=== PATIENT | male | born 1980 | race Caucasian/White ===

== ENCOUNTER → 2019-05-23 | Outpatient (CLI) | payer OTHER | LOC: COL.RAD 13:28 | DX: M50.122 Cervical disc disorder at C5-C6 level with radiculopathy (principal) ==

== ENCOUNTER → 2019-06-07 | Outpatient (CLI) | payer OTHER | LOC: MHCPAIN 15:00 | DX: G89.29 Other chronic pain (principal); M54.12 Radiculopathy, cervical region; M47.812 Spondylosis without myelopathy or radiculopathy, cervical region | CPT/HCPCS: G0463 ==

== ENCOUNTER → 2019-06-22 | Outpatient (CLI) | payer OTHER | LOC: MHCPAIN 13:50 | DX: M47.812 Spondylosis without myelopathy or radiculopathy, cervical region (principal); M54.12 Radiculopathy, cervical region | CPT/HCPCS: J1100; Q9967 ==

== ENCOUNTER → 2019-06-26 | Outpatient (CLI) | payer OTHER | LOC: MHCPAIN 15:02 | DX: G89.29 Other chronic pain (principal); M54.12 Radiculopathy, cervical region; M47.812 Spondylosis without myelopathy or radiculopathy, cervical region | CPT/HCPCS: G0463 ==

== ENCOUNTER → 2019-11-27 | Outpatient (CLI) | payer OTHER | LOC: COL.RAD 08:40 | DX: M50.122 Cervical disc disorder at C5-C6 level with radiculopathy (principal); Z98.1 Arthrodesis status ==

== ENCOUNTER → 2020-02-20 | Outpatient (CLI) | payer OTHER | LOC: COL.RAD 09:01 | DX: M50.122 Cervical disc disorder at C5-C6 level with radiculopathy (principal); Z98.1 Arthrodesis status ==

== ENCOUNTER → 2020-07-25 | Outpatient (CLI) | payer OTHER | LOC: COL.RAD 07:55 | DX: M50.122 Cervical disc disorder at C5-C6 level with radiculopathy (principal); M40.50 Lordosis, unspecified, site unspecified; Z98.1 Arthrodesis status ==

== ENCOUNTER 2020-11-17 14:26 | Emergency (ER) | payer OTHER ==
[~2020-11-17] VITALS: Ht 185.4 cm; Wt 159.1 kg
[2020-11-17 14:34] VITALS: BP 153/102; TEMP 98.3
[2020-11-17 14:58] VITALS: PULSE 81
== END 2020-11-17 15:08 | disposition home or self-care (01) ==
LOC: COL.ER 14:26
DX: K42.9 Umbilical hernia without obstruction or gangrene (principal)

== ENCOUNTER → 2020-11-19 | Outpatient (CLI) | payer OTHER | LOC: COL.RAD 08:32 → COL.LAB 08:32 → COL.RAD 08:35 | DX: M47.812 Spondylosis without myelopathy or radiculopathy, cervical region (principal); Z98.1 Arthrodesis status ==

== ENCOUNTER 2020-11-28 10:27 | Day surgery (SDC) | payer OTHER ==
[2020-11-28] VITALS (7 sets, daily range): BP systolic 123–143; BP diastolic 73–92; PULSE 65–78; TEMP 97.6–98
[~2020-11-28] VITALS: Ht 185.4 cm; Wt 165.0 kg
[2020-11-28] MEDS ORDERED: NAPROSYN500 MG PO (11:01)
--- NOTE | 2020-11-28 11:04 | NUR ---
TO RM 8 - CALL LIGHT IN REACH
[2020-11-28] MEDS ORDERED: NORCO 325 MG-51 TAB PO (15:42)
[2020-11-28] MEDS ORDERED: MOTRIN 600600 MG/TAB PO (15:42)
--- NOTE | 2020-11-28 15:45 | NUR ---
DR HORN INTO TALK WITH PATIENTS FATHER.
--- NOTE | 2020-11-28 16:00 | NUR ---
TO RM 8 PER CART FROM PACU. DROWSY, BUT ANSWERS QUESTIONS COHERENTLY. INCSION CLEAN DRY INTACT. C/O PAIN 5/10 AT CURRENT TIME.
--- NOTE | 2020-11-28 16:15 | NUR ---
RECEIVED WATER AND DRANK 1 CUP IMMEDIATELY. THEN TAKING SIPS FROM SECOND CUP.
--- NOTE | 2020-11-28 16:30 | NUR ---
RECEIVED JORGE LUIS. PUDDING AND ATE 100%.
--- NOTE | 2020-11-28 16:40 | NUR ---
CONTINUED TO C/O PAIN 02/24- RECEIVED NORCO 5MG 1 TAB. DISCONTINUED 02 PER NC
--- NOTE | 2020-11-28 16:45 | NUR ---
O2 SAT 93-95 OFF O2. PATIENT RESTING QUIETLY WITH EYES CLOSED
--- NOTE | 2020-11-28 17:00 | NUR ---
STATED THE PAIN IS ABOUT THE SAME.
--- NOTE | 2020-11-28 17:15 | NUR ---
AMBULATED TO BATHROOM WITH STANDBY ASSIST. FATHER ALSO AT SIDE.
--- NOTE | 2020-11-28 17:25 | NUR ---
RECEIVED DISCHARGE INSTRUCTIONS AND VERBALIZED UNDERSTANDING DISCONTINUED IV AND INT- CATHETER INTACT.
--- NOTE | 2020-11-28 17:40 | NUR ---
DISCHARGED PER WC BY NURSING STAFF TO PRIVATE CAR IN CARE OF FATHER.
== END 2020-11-28 17:46 | disposition home or self-care (01) ==
LOC: SDCO 10:27
DX: K42.9 Umbilical hernia without obstruction or gangrene (principal); K21.9 Gastro-esophageal reflux disease without esophagitis; E66.9 Obesity, unspecified; Z68.42 Body mass index [BMI] 45.0-49.9, adult; Z20.822 Contact with and (suspected) exposure to COVID-19
CPT/HCPCS: C1781; J0690; J1100; J1885; J2405; J2704; J3010; J7120